=== PATIENT | male | born 1955 | race Caucasian/White ===

== ENCOUNTER 2019-04-15 13:28 | Emergency (ER) | payer SELFPAY ==
[2019-04-15] MEDS ORDERED: IBUPROFEN 400 MG TAB ONE (15:20)
[2019-04-15] MEDS ORDERED: HYDROCODONE/APAP 7.5/325 MG TAB ONE (15:20)
--- NOTE | 2019-04-15 15:32 | ER ---
Nurse's Notes [facility] Name: Darci Castorena Age: 63 yrs Sex: Male : 1955 Arrival Date: 04/15/2019 Time: 13:31 Bed 30 Private MD: Diagnosis: Injury of muscle, fascia and tendon of other parts of biceps Presentation: 04/15 13:52 Presenting complaint: Patient states: "I was lifting an amplifier and the bulb snapped aa5 and I was trying to hold on to the amplifier and hurt my left arm". pt reports amplifier weight approximately 40lbs. Pt c/o left upper arm pain and left elbow pain. Transition of care: patient was not received from another setting of care. Onset of symptoms was April 15, 2019. Risk Assessment: Do you want to hurt yourself or someone else? Patient reports no desire to harm self or others. Initial Sepsis Screen: Does the patient meet any 2 criteria? No. Patient's initial sepsis screen is negative. Does the patient have a suspected source of infection? No. Patient's initial sepsis screen is negative. Care prior to arrival: None. 13:52 Method Of Arrival: Ambulatory aa5 13:52 Acuity: JORGE A 3 aa5 Triage Assessment: 15:08 General: Appears in no apparent distress. uncomfortable. General: Behavior is calm, rv cooperative. Historical: - Allergies: 13:55 No Known Allergies; aa5 - Home Meds: 13:57 metoprolol tartrate 25 mg Oral tab [Active]; amlodipine-benazepril 10-20 mg oral cap aa5 [Active]; testosterone once a week [Active]; - PMHx: 13:55 Hypertension; aa5 - PSHx: 13:55 Appendectomy; Cholecystectomy; [place] shoulders; aa5 - Immunization history:: Adult Immunizations unknown. - Social history:: Smoking status: Patient/guardian denies using tobacco. - Ebola Screening: : No symptoms or risks identified at this time. Screenin:08 Abuse screen: Denies threats or abuse. Denies injuries from another. Nutritional rv screening: No deficits noted. Tuberculosis screening: No symptoms or risk factors identified. Fall Risk None identified. Assessment: 15:07 General: Appears in no apparent distress. uncomfortable, Behavior is calm, cooperative. rv Pain: Complains of pain in left arm. Neuro: Level of Consciousness is awake, alert, obeys commands, Oriented to person, place, time, situation. Cardiovascular: Patient's skin is warm and dry. Respiratory: Airway is patent. GI: No signs and/or symptoms were reported involving the gastrointestinal system. : No signs and/or symptoms were reported regarding the genitourinary system. EENT: No signs and/or symptoms were reported regarding the EENT system. Derm: Skin is intact. Musculoskeletal: Range of motion: limited in left shoulder, left elbow and left wrist Reports pain in left arm. Vital Signs: 13:55 BP 153 / 84; Pulse 108; Resp 16 S; Temp 99.0(TE); Pulse Ox 95% on R/A; Weight 92.99 kg aa5 (R); Height 5 ft. 11 in. (180.34 cm) (R); Pain 8/10; 15:09 BP 130 / 88; Pulse 92; Resp 18; Pulse Ox 97% ; rv 13:55 Body Mass Index 28.59 (92.99 kg, 180.34 cm) aa5 ED Course: 13:31 Patient arrived in ED. rg4 13:52 Arm band placed on. aa5 13:53 Triage completed. aa5 14:40 Daniel Mcelroy, YVETTE is Primary Nurse. rv 14:52 Felix Alvarez PA is PHCP. cp 14:52 Rupert Latham MD is Attending Physician. cp 15:08 Patient has correct armband on for positive identification. Placed in gown. Bed in low rv position. Call light in reach. Side rails up X 1. Adult w/ patient. Pulse ox on. NIBP on. 15:53 No provider procedures requiring assistance completed. Patient did not have IV access rv during this emergency room visit. Administered Medications: 15:06 Drug: Hydrocodone-Acetaminophen (7.5 mg-325 mg) 1 tabs Route: PO; rv 15:53 Follow up: Response: No adverse reaction; Marked relief of symptoms; Pain is decreased rv 15:06 Drug: Ibuprofen 800 mg Route: PO; rv 15:53 Follow up: Response: No adverse reaction; Marked relief of symptoms; Pain is decreased rv Outcome: 15:31 Discharge ordered by . cp 15:53 Discharged to home ambulatory. rv 15:53 Condition: good 15:53 Discharge instructions given to patient, Instructed on discharge instructions, follow up and referral plans. medication usage, Demonstrated understanding of instructions, follow-up care, medications, Prescriptions given X 2. 15:54 Patient left the ED. rv Signatures: Lizett Velasco, RN RN aa5 Felix Alvarez PA PA cp Garcia, Rubi rg4 Daniel Mcelroy RN RN rv Corrections: (The following items were deleted from the chart) 13:57 13:55 Home Meds: amlodipine oral; reji mendoza
--- NOTE | 2019-04-15 15:32 | EDPHYS ---
Physician Documentation [facility] Name: Darci Castorena Age: 63 yrs Sex: Male : 1955 Arrival Date: 04/15/2019 Time: 13:31 Bed 30 Private MD: ED Physician Rupert Latham HPI: 04/15 15:05 This 63 yrs old Male presents to ER via Ambulatory with complaints of Arm cp Injury. 15:05 The patient or guardian complains of decreased range of motion, injury, pain, that is cp acute. The complaints affect the left bicep. Context: The problem was sustained at work, resulted from attempting to prevent heavy amplifier from falling while on ladder. Onset: The symptoms/episode began/occurred today. Treatment prior to arrival includes: sling. Patient reports he felt "pop" in left bicep area after arm hyperextended in attempt to catch amplifier. Historical: - Allergies: 13:55 No Known Allergies; aa5 - Home Meds: 13:57 metoprolol tartrate 25 mg Oral tab [Active]; amlodipine-benazepril 10-20 mg oral cap aa5 [Active]; testosterone once a week [Active]; - PMHx: 13:55 Hypertension; aa5 - PSHx: 13:55 Appendectomy; Cholecystectomy; [place] shoulders; aa5 - Immunization history:: Adult Immunizations unknown. - Social history:: Smoking status: Patient/guardian denies using tobacco. - Ebola Screening: : No symptoms or risks identified at this time. ROS: 15:10 MS/extremity: Positive for injury or acute deformity, decreased range of motion, pain, cp tenderness, of the left bicep, Negative for paresthesias. 15:10 Eyes: Negative for injury, pain, redness, and discharge. cp 15:10 Constitutional: Negative for body aches, chills, fever, poor PO intake. 15:10 Neck: Negative for pain with movement, pain at rest, stiffness, tenderness. 15:10 Cardiovascular: Negative for chest pain, palpitations. 15:10 Respiratory: Negative for cough, shortness of breath, wheezing. 15:10 Abdomen/GI: Negative for abdominal pain, nausea, vomiting, and diarrhea. 15:10 Neuro: Negative for altered mental status, headache, weakness. 15:10 All other systems are negative. Exam: 15:15 Constitutional: The patient appears in no acute distress, alert, awake, cp non-diaphoretic, non-toxic, well developed, well nourished, uncomfortable. 15:15 Head/Face: Normocephalic, atraumatic. cp 15:15 Chest/axilla: Inspection: normal, Palpation: is normal, no crepitus, no tenderness. 15:15 Cardiovascular: Rate: tachycardic, Rhythm: regular. 15:15 Respiratory: the patient does not display signs of respiratory distress, Respirations: normal, no use of accessory muscles, no retractions, no splinting, no tachypnea. 15:15 Musculoskeletal/extremity: Extremities: grossly normal except: noted in the left bicep: decreased ROM, deformity, pain, swelling, tenderness, ROM: limited active range of motion, in the left arm, Perfusion: the extremity is normally perfused throughout, Severe pain noted. 15:15 Skin: cellulitis, that is minimal, no rash present. Vital Signs: 13:55 BP 153 / 84; Pulse 108; Resp 16 S; Temp 99.0(TE); Pulse Ox 95% on R/A; Weight 92.99 kg aa5 (R); Height 5 ft. 11 in. (180.34 cm) (R); Pain 8/10; 15:09 BP 130 / 88; Pulse 92; Resp 18; Pulse Ox 97% ; rv 13:55 Body Mass Index 28.59 (92.99 kg, 180.34 cm) aa5 MDM: 15:07 Patient medically screened. cp 15:10 Differential diagnosis: open fracture, closed fracture, tendonitis, biceps tendon cp rupture. 15:30 Data reviewed: vital signs, nurses notes, and as a result, I will discharge patient. cp 15:30 Counseling: I had a detailed discussion with the patient and/or guardian regarding: the cp historical points, exam findings, and any diagnostic results supporting the discharge/admit diagnosis, the need for outpatient follow up, for definitive care, a orthopedic surgeon, to return to the emergency department if symptoms worsen or persist or if there are any questions or concerns that arise at home. Response to treatment: the patient's symptoms have markedly improved after treatment, and as a result, I will discharge patient. Administered Medications: 15:06 Drug: Hydrocodone-Acetaminophen (7.5 mg-325 mg) 1 tabs Route: PO; rv 15:53 Follow up: Response: No adverse reaction; Marked relief of symptoms; Pain is decreased rv 15:06 Drug: Ibuprofen 800 mg Route: PO; rv 15:53 Follow up: Response: No adverse reaction; Marked relief of symptoms; Pain is decreased rv Disposition: 18:57 Co-signature as Attending Physician, Rupert Latham MD Available for consultation at ps1 all times . Disposition: 04/15/19 15:31 Discharged to Home. Impression: Injury of muscle, fascia and tendon of other parts of biceps. - Condition is Stable. - Discharge Instructions: Surgery for Biceps Tendon Disruption (Distal). - Prescriptions for Ibuprofen 800 mg Oral Tablet - take 1 tablet by ORAL route every 8 hours As needed take with food; 30 tablet. Tylenol- Codeine #3 300-30 mg Oral Tablet - take 2 tablets by ORAL route every 6 hours As needed; 20 tablet. - Medication Reconciliation Form, Thank You Letter, Antibiotic Education, Prescription Opioid Use, Work release form form. - Follow up: Private Physician; When: primary orthopedist; Reason: left ruptured biceps tendon. - Problem is new. - Symptoms have improved. Signatures: Lizett Velasco, RN RN aa5 Felix Alvarez PA PA cp Rupert Latham MD MD ps1 Daniel Mcelroy RN RN rv Corrections: (The following items were deleted from the chart) 13:57 13:55 Home Meds: amlodipine oral; aa5 aa5 15:54 15:31 04/15/2019 15:31 Discharged to Home. Impression: Injury of muscle, fascia and rv tendon of other parts of biceps. Condition is Stable. Forms are Medication Reconciliation Form, Thank You Letter, Antibiotic Education, Prescription Opioid Use. Follow up: Private Physician; When: primary orthopedist; Reason: left ruptured biceps tendon. Problem is new. Symptoms have improved. cp
== END 2019-04-15 15:54 | disposition home or self-care (01) ==
LOC: ER 13:28
DX: S46.202A Unspecified injury of muscle, fascia and tendon of other parts of biceps, left arm, initial encounter (principal); X50.0XXA Overexertion from strenuous movement or load, initial encounter; I10 Essential (primary) hypertension
CPT/HCPCS: 99283